=== PATIENT | female | born 1975 | race African-American/Black ===

== ENCOUNTER 2024-07-09 02:07 | Emergency (ER) | payer OTHER, SELFPAY ==
[2024-07-09] VITALS (30 sets, daily range): BP systolic 112–146; BP diastolic 68–110; PULSE 54–86; RESP 12–27; TEMP 36.3; O2SAT 97–100
--- NOTE | ~2024-07-09 | XR_ITS ---
EXAM/PROCEDURE: XR chest 2V - 07/09/2024 02:18 CDT HISTORY: 48 years old Female with sob TECHNIQUE: Two view(s) of the chest. COMPARISON: None available. FINDINGS: LUNGS/ PLEURA: No focal consolidation. No appreciable pneumothorax or large pleural effusion. HEART/ MEDIASTINUM: Heart appears normal in size. BONES: No acute osseous abnormality. OTHER: Visualized upper abdomen is unremarkable. IMPRESSION: No acute process. Reviewed, dictated and finalized at location A. IMPRESSION: No acute process.
--- NOTE | 2024-07-09 02:11 | ECG_ITS ---
Test Date: 2024-07-09 02:10:15 Measurements Intervals [place] Rate: 65 P: 60 FL: 165 QRS: 31 QRSD: 88 T: 30 QT: 404 QTc: 421 Interpretive Statements SINUS RHYTHM NONSPECIFIC T-WAVE ABNORMALITY- ANTERIOR LEADS BASELINE ARTIFACT- I, II, AVR, V1 BORDERLINE ECG No previous ECG available for comparison Electronically Signed On 07-09-2024 06:46:09 CDT by Jean-Claude Fontaine D.O.
[2024-07-09 02:18] LABS: Basophils Percent Auto 0.4 % (0.2-1.2); Eosinophils Absolute Auto 0.2 K/mm3 (0-0.3); Eosinophils Percent Auto 1.7 % (0-4.4); Hematocrit 35.1 % (37.0-47.0); Hemoglobin 11.1 g/dL (12.0-15.0); Immature Granulocyte Absolute 0.05 K/mm3 (0.00-0.031); Immature Granulocyte Percent A 0.5 % (0-0.5); Lymphocytes Absolute Auto 3.29 K/mm3 (0.9-3.2); Lymphocytes Percent Auto 29.9 % (18.3-44.2); Mean Corpuscular HGB Conc 31.6 g/dl (32-36); Mean Corpuscular Hemoglobin 24.9 pg (26-34); Mean Corpuscular Volume 78.9 fl (80-100); Mean Platelet Volume 9.4 fl (7.4-10.4); Monocytes Absolute Auto 0.7 K/mm3 (0.1-0.6); Monocytes Percent Auto 5.9 % (2.6-8.5); Neutrophils Absolute Auto 6.8 K/mm3 (1.3-6.7); Neutrophils Percent Auto 61.6 % (45.5-73.1); Platelet Count Result 475 k/mm3 (150-375); Red Blood Count 4.45 M/mm3 (4.2-5.4)
[2024-07-09 02:29] LABS: Alanine Aminotransferase 23 U/L (6-35); Albumin Level 3.9 g/dL (3.5-5.1); Alkaline Phosphatase 100 U/L (38-126); Anion Gap 11 mmol/L (4-12); Aspartate Amino Transferase 28 U/L (14-36); Bilirubin,Total 0.2 mg/dL (0.2-1.3); Blood Urea Nitrogen 8 mg/dL (7-17); Calcium 9.2 mg/dL (8.4-10.2); Carbon Dioxide 20 mmol/L (22-30); Chloride 106 mmol/L (98-107); Estimated CRCL calculation 109 ml/min; Estimated Glomerular Filt Rate > 60; Glucose 112 mg/dL (65-110); Potassium 3.5 mmol/L (3.4-5.0); Sodium 137 mmol/L (137-145)
--- NOTE | 2024-07-09 02:53 | ED_ITS ---
HPI - General Adult General Chief complaint: Shortness of Breath/Dyspnea Stated complaint: HTN, back pain, nausea, sob Time Seen by Provider: 07/09/24 02:30 History of Present Illness HPI narrative: Patient 48-year-old female who presents emergency department with chief complaint of shortness of breath dizziness low back pain and high blood pressure. The patient states that she has noticed that her low back pain in the little worse than normal reports no bowel or bladder incontinence denies saddle anesthesia denies footdrop patient reports that she checked her blood pressure and was elevated at home and reports that she took a dose of her mother's metoprolol the patient states that she is not on antihypertensives and does not normally check her blood pressure. Related Data Allergies Allergy/AdvReac Type Severity Reaction Status Date / Time No Known Allergies Allergy Mild Verified 07/03/09 17:37 Review of Systems 2 Review of Systems: A 10 system review of systems was completed on the patient and is negative except for what is stated in the HPI. Nursing and ancillary documentation was reviewed. Exam 2 Narrative: GENERAL: Well-appearing, well-nourished, and in no acute distress. HEAD: Normocephalic, atraumatic. EYES: PERRLA and EOMI. ENT: Nares clear, no rhinorrhea or epistaxis. Mucous membranes moist. NECK: Supple. CHEST: Clear to auscultation. No respiratory distress. HEART: Regular rate and rhythm. No murmur heard. Normal peripheral pulses. ABDOMEN: Soft, nontender, nondistended, normal active bowel sounds. EXTREMITIES: Normal range of motion. No edema. SKIN: Warm, dry, no rash. NEURO: No focal deficits. Alert and oriented x3. PSYCH: Normal mood and affect. Course Vital Signs Vital signs: Vital Signs Temperature 36.3 C L 07/09/24 02:05 Pulse Rate 79 07/09/24 02:05 Respiratory Rate 16 07/09/24 02:05 Blood Pressure 136/103 H 07/09/24 02:05 Pulse Oximetry 100 07/09/24 02:05 Oxygen Delivery Room Air 07/09/24 02:05 Temperature 36.3 C L 07/09/24 02:05 Pulse Rate 69 07/09/24 03:47 Respiratory Rate 17 07/09/24 03:47 Blood Pressure 128/79 07/09/24 03:47 Pulse Oximetry 100 07/09/24 03:47 Oxygen Delivery Room Air 07/09/24 02:10 Medical Decision Making MDM Narrative Medical decision making narrative: Differential diagnosis includes hypertensive crisis, hypertension, electrolyte abnormality ACS EKG showed no acute ischemic change Troponin was negative BNP was negative electrolytes showed no significant abnormality CBC showed white count 11 hemoglobin was 11.1 Chest x-ray showed no focal infiltrate Vital Signs Vital Signs: Vital Signs Temperature 36.3 C L 07/09/24 02:05 Pulse Rate 79 07/09/24 02:05 Respiratory Rate 16 07/09/24 02:05 Blood Pressure 136/103 H 07/09/24 02:05 Pulse Oximetry 100 07/09/24 02:05 Oxygen Delivery Room Air 07/09/24 02:05 Temperature 36.3 C L 07/09/24 02:05 Pulse Rate 69 07/09/24 03:47 Respiratory Rate 17 07/09/24 03:47 Blood Pressure 128/79 07/09/24 03:47 Pulse Oximetry 100 07/09/24 03:47 Oxygen Delivery Room Air 07/09/24 02:10 Lab Data 07/09/24 02:13 07/09/24 02:13 Labs: Lab Results 07/09/24 Range/Units 02:13 WBC 11.0 H (4.5-10.0) K/mm3 RBC 4.45 (4.2-5.4) M/mm3 Hgb 11.1 L (12.0-15.0) g/dL Hct 35.1 L (37.0-47.0) % MCV 78.9 L (80-100) fl MCH 24.9 L (26-34) pg MCHC 31.6 L (32-36) g/dl RDW 17.0 H (11.5-14.5) % Plt Count 475 H (150-375) k/mm3 MPV 9.4 (7.4-10.4) fl Immature Gran % (Auto) 0.5 (0-0.5) % Neut % (Auto) 61.6 (45.5-73.1) % Lymph % (Auto) 29.9 (18.3-44.2) % Cameron % (Auto) 5.9 (2.6-8.5) % Eos % (Auto) 1.7 (0-4.4) % Baso % (Auto) 0.4 (0.2-1.2) % Lymph # (Auto) 3.29 H (0.9-3.2) K/mm3 Cameron # (Auto) 0.7 H (0.1-0.6) K/mm3 Eos # (Auto) 0.2 (0-0.3) K/mm3 Baso # (Auto) 0.0 (0.0-0.1) K/mm3 Abs Immat Gran (auto) 0.05 H (0.00-0.031) K/mm3 Absolute Neuts (auto) 6.8 H (1.3-6.7) K/mm3 Absolute Nucleated RBC 0.000 (0.0-0.012) K/mm3 Nucleated RBC % 0.0 (0.0-0.2) % Sodium 137 (137-145) mmol/L Potassium 3.5 (3.4-5.0) mmol/L Chloride 106 (98-107) mmol/L Carbon Dioxide 20 L (22-30) mmol/L Anion Gap 11 (4-12) mmol/L BUN 8 (7-17) mg/dL Creatinine 0.64 L (0.7-1.0) mg/dL Estim Creat Clear Calc 109 ml/min Estimated GFR > 60 (59 - ) Glucose 112 H (65-110) mg/dL Calcium 9.2 (8.4-10.2) mg/dL Total Bilirubin 0.2 (0.2-1.3) mg/dL AST 28 (14-36) U/L ALT 23 (6-35) U/L Alkaline Phosphatase 100 (38-126) U/L Troponin I < 0.012 (0.000-0.034) ng/mL NT-Pro-B Natriuret Pep < 20 (19.9-100) pg/mL Total Protein 7.0 (6.3-8.2) g/dL Albumin 3.9 (3.5-5.1) g/dL Discharge Plan Discharge Clinical Impression: Hypertension Patient Disposition: Home Condition: Stable Instructions: Antibiotic Form, Low-Sodium Diet (ED), Hypertension (ED) Additional Instructions: Please keep a daily log of your blood pressure. He should check her blood pressure in the morning and in the evening keep track of this and bring this to your primary care provider Patient Language: Indonesian Follow-up/Referrals: VICENTE,Anitra SHORT [Primary Care Provider] - Time of Disposition: 05:29
--- OUTSIDE RECORDS SUMMARY | 2024-07-09 02:54 | XMS_ITS | Encounter Summary ---
Author Organization [facility] Address [address] [facility] [place] [address] Phone Care Team Providers Care Oracle Business Analyst Name Role Phone Elpidio Greer MD Primary Care Provider [phone] Lina Patel MD Primary Care Provider [phone] Reason for Visit * Reason Comments Medication Refill Encounter Details Date Type Department Care Team (Late st Contact Info) Description 08/09/2022 Refill [facility] - Internal [facility] - [place] [address] [place] [address] Elpidio Greer MD [address] [place] [address] Medication Refill Social History Tobacco Use Types Packs/Day Years Used Date Smoking Tobacco: Every Day Smokeless Tobacco: Never Alcohol Use Standard Drinks/Week Comments Yes 0 (1 standard drink = 0.6 oz pur e alcohol) PHQ-2 Answer Date Recorded Total Score - Questions 1-9 0 03/2020 Sexually Active Control Partners Comments Not Currently Comments No Sex and Gender Information Value Date Recorded Sex Assigned at Not on file Legal Sex Female 8:32 PM CDT Gender Identity Not on file Sexual Orientation Not on file documented as of this encounter Plan of Treatment Not on file documented as of this encounter Visit Diagnoses Not on filedocumented in this encounter Care Teams Oracle Business Analyst Relationship Specialty Start Date End Date Elpidio Greer MD [address] [place] [address] PCP - General Internal Medicine 02/11/21 09/09/23 Lina Patel MD [address] [place] [address] PCP - General Family Medicine 09/10/23 documented as of this encounter
--- OUTSIDE RECORDS SUMMARY | 2024-07-09 02:54 | XMS_ITS | Data Portability ---
Author Organization [place] - [facility], Bertha Smith Address [address] [place] [id number] Assessment No assessment recorded. Plan of Treatment Reminders Order Date Submit Date Provider Last Modified By Organization Details Last Modified Time Details Appointments None record ed. Lab None record ed. Referral None record ed. Procedures None record ed. Surgeries None record ed. Imaging None record ed. Medication Orders neomyc in-susi ymyxin -hydro cleve 3.5 mg-10, 000 unit/m L-1 % ear drops, susp 023 02/26/20 23 [facility] [id number] In [facility], [address] [place], [address], 17:19:40 Patient TargetsNo targets recorded. Patient Instructions Encounter Date Encounter Id Patient Instructions Last Modified By Organization Details Last Modified Time 02/25/2023 [id number] Avoid water in right ear for the next 7 days while under treatment,store at room temperature Encouraged to avoid Q-tip use in ears Follow up if ear symptoms persist, worsen, or have other questions or concerns. Patient verbalized understanding and agreed with the above Not available 02/25/2023 17:58:19 Reason for Referral None Reported. Medical Equipment None Reported. Allergies No known drug allergies Medications Name Sig Start Date Stop Date Status Note LastModified by Organization Details LastModified Time levothyroxi ne 137 mcg tablet TAKE 1 TABLET BY MOUTH EVERY DAY active Not Available Not Available No t Available meloxicam 7.5 mg tablet TAKE 1 TABLET BY MOUTH EVERY DAY FOR BACK PAIN active Not Available Not Available No t Available neomycin-po lymyxin-hyd rocort 3.5 mg-10,000 unit/mL-1 % ear drops,susp INSTILL 4 DROPS INTO AFFECTED EAR(S) BY OTIC ROUTE 3 TIMES PER DAY 2022 active Not Available Not Available Not Hernesto farr escitalopra m 10 mg tablet TAKE 1 TABLET BY MOUTH DAILY active Not Available Not Available No t Available bupropion HCl XL 150 mg 24 hr tablet, extended release TAKE 1 TABLET BY MOUTH EVERY DAY active Not Available Not Available No t Available Danyelle 0.35 mg tablet TAKE 1 TABLET BY MOUTH EVERY DAY 02/25 completed Not Available Not Available Not Available Vitals Date Recorded Body temperature Body height Respiratory rate Oxygen saturation Oxygen saturation in Arterial blood by Pulse oximetry Body mass index (BMI) Body weight Heart rate Systolic blood pressure Diastolic blood pressure Provider Name and Address Organization Details Last Updated DateTime 3 97.5 [degF] 165.1 cm 20 /min 98 % 98 % 34.9 kg/m2 09964.4 g 106 /min 137 mm[Hg] 92 mm[Hg] Maria Eugenia Kat [place] - [facility] 3 16:47:38 Social History Question Answer Notes LastModified by Pili Pop ion Details LastModified Time Tobacco Smoking Status Current Every Day Smoker Maria Eugenia [place], [place] [facility] 02/25/2023 16:49:00 In The 14 Days Before Symptom Onset, Have You Had Close Contact With A Laboratory-confirm ed COVID-19 While That Case Was Ill? No Information n ot available 02/25/2023 In The 14 Days Before Symptom Onset, Have You Had Close Contact With A Person Who Is Under Investigation For COVID-19 While That Person Was Ill? No Information not available 02/25/2023 Have You Been To An Area Known To Be High Risk For COVID-19? No Information not available 02/25/2023 Sex: Unknown Functional Status None recorded. Mental Status None recorded. Family History Nothing Reported. Medical History No medical history recorded. Gynecological HistoryNo gynecological history recorded. Obstetrics History GPAL:G 0 P 0 0 0 0 Immunizations Vaccine Type Date Status Note Provider Nam e and Address Organization Details Recorded Time Influenza, split virus, quadrivalent, PF 05/13/2019 completed Maria Eugenia saeed [place] [facility] 02/25/2023 16:48:03 Past Encounters Encounter ID Performer Location Encounter Start Date Encounter Closed Date Diagnosis/Indication Diagnosis SNOMED-CT Code Diagnosis ICD10 Code Diagnosis Note [id number] Lizbet Perla NP [facility] - [address] [place] [id number] 02/25/2023 16:41:44 02/25/2023 18:36:03 Otitis externa of right ear [id number] H60.91 Reviewed diagnosis of Otitis Externa with patientVer ified she had NKDA Health Concerns Section Related Observation LastModified by Organization Detai ls LastModified Time None Recorded Concern Status LastModified by Organization Details LastModified Time None Recorded Advance Directives Directive None Recorded Payers Encounter Date Sequence Insurance Name Policy Number Policy Hughes Covered Member ID Hughes Member ID Guarantor Name 02/25/2023 [employer] - NON - PLAN PARTICIPANT - (MOVED-BILLED) SELF PAY Hui Alejo UNKNOWN Hui Alejo Notes Date Note Type Note Provider Name and Address Organization Details Recorded Time 02/25/2023 text/html Hui a 47 yr old female presents in the clinic today with complaints of feeling like there is something in her right ear. Symptoms started after a dog jumped on the bed while she was lying down, therefore thought the dog may have had fleas or other that might have got in her ear, so started using a Q-tip in her ear to see if there was something in her ear, but unable to get anything out. States right ear feels irritated with a fullness sensation. Denies current or history of recent cold/congestive symptoms, no decrease hearing, ear drainage,dizzines s, vertigo, nausea, cough, fever, chills or headache. Lizbet Perla NP [address], [facility] [place], [address], [place] - [facility] 02/25/2023 18:02:22 OBGyn Episode No OBEpisode recorded.
--- OUTSIDE RECORDS SUMMARY | 2024-07-09 02:54 | XMS_ITS | Encounter Summary ---
Author Organization [facility] Address [address] [facility] [place] [address] Phone Care Team Providers Care Environmental Maintenance Worker Name Role Phone Elpidio Greer MD Primary Care Provider [phone] Lina Patel MD Primary Care Provider [phone] Reason for Visit * Reason Comments Medication Refill Encounter Details Date Type Department Care Team (Late st Contact Info) Description 05/13/2022 Refill [facility] - Internal Medicine - [place] [address] [place] [address] Elpidio Greer MD [address] [place] [address] Medication Refill Social History Tobacco [...] on file documented as of this encounter Miscellaneous Notes * Telephone Encounter - Annie Cooper RN - 05/13/2022 8:03 AM CST Medication failed the protocol, provider to review and approve the medication order if appropriate. Requested Prescriptions Pending Prescriptions Disp Refills phentermine 30 MG Capsule [Pharmacy Med Name: PHENTERMINE HCL 30MG CAPSULES] 30 Capsule 0 Sig: TAKE 1 CAPSULE BY MOUTH DAILY IN THE MORNING Not Delegated - Anorexiants Non-amphetamine Protocol Failed - 05/13/2022 6:17 AM Failed - This refill cannot be delegated Passed - Visit with relevant provider in past 12 months or upcoming 90 days Recent Visits Date Type Provider Dept 07/04/21 Office Visit Elpidio Greer MD [facility] [place] Showing recent visits within past 365 days and meeting all other requirements Future Appointments No visits were found meeting these conditions. Showing future appointments within next 90 days and meeting all other requirements LESS OPERATOR documented in this encounter Plan of Treatment Not on file documented as of this encounter Visit Diagnoses Diagnosis Obesity (BMI 30-39.9) Obesity, unspecified documented in this encounter Care Teams Environmental Maintenance Worker Relationship Specialty Start Date End Date Elpidio Greer MD [address] [facility] [place] [address] PCP - General Internal Medicine 02/11/21 09/09/23 Lina Patel MD [address] [place] [id number] PCP - General Family Medicine 09/10/23 documented as of this encounter
--- OUTSIDE RECORDS SUMMARY | 2024-07-09 02:54 | XMS_ITS | Clinical Summary ---
Author Organization [facility] Address [address] [place] [address] Phone Care Team Providers Care Shoe Reconditioner Name Role Phone Lina Patel MD Primary Care Provider [phone] Allergies No known active allergies Medications tiZANidine (ZANAFLEX) 2 MG Tablet TAKE 1 TABLET BY MOUTH TWICE DAILY NEEDED FOR MUSCLE SPASMS 30 Tablet 2 2 Active Additional Information Patient not taking.Reported on 03/07/2024 naproxen (NAPROSYN) 500 MG Tablet Take 1 Tablet by mouth 2 times daily as needed for Mild or more severe pain. 60 Tablet 1 2 Active Additional Information Patient not taking.Reported on 03/07/2024 phentermine 30 MG CapsuleIndicat ions:Obesity (BMI 30-39.9) Take 1 Capsule by mouth daily. In AM 30 Capsule 2 Active Additional Information Patient not taking.Reported on 03/07/2024 Norethindrone, Contraceptive, 0.35 MG Tablet 2 Active escitalopram (LEXAPRO) 10 MG Tablet TAKE 1 TABLET BY MOUTH DAILY 30 Tablet 3 3 Active Additional Information Patient not taking.Reported on 05/06/2024 levothyroxine (SYNTHROID) 137 MCG Tablet TAKE 1 TABLET BY MOUTH DAILY 30 Tablet 3 3 Active meloxicam (MOBIC) 7.5 MG Tablet TAKE 1 TABLET BY MOUTH EVERY DAY FOR BACK PAIN Active buPROPion (WELLBUTRIN) 300 MG TABLET SR 24 HR XL tablet Take 1 Tablet by mouth daily. Active MAGNESIUM PO Take by mouth daily. 06/17/19 25 Discontin ued(Patie nt Discharge ) Active Problems Problem Noted Date Diagnosed Date Postablative hypothyroidism 02/27/2021 Chronic right-sided low back pain without sciati ca 02/27/2021 Generalized anxiety disorder 02/27/2021 Encounters Date Type Department Care Team Description 06/04/2024 10:56 AM HOSPICE MUSIC THERAPIST - 06/04/2024 11:59 PM HOSPICE MUSIC THERAPIST Hospital Encounter [facility] Mammography [address] [place] [address] Lina Patel MD Discharge Disposition: Discharged to home or Selfcare 06/03/2024 Travel 05/06/2024 Telephone [facility] - Gastroenterology [facility] [address] [place] [address] Mary Ann Guo APRN, PACKER 05/06/2024 Travel 04/26/2024 Travel from Last 3 Months Family History Medical History Relation Name Comments Diabetes Father Diabetes Mother Hypertension Mother Thyroid Disease Mother Relation Name Status Comments Father Alive Mother Alive Social History Tobacco Use Types Packs/Day Years Used Date Smoking Tobacco: Every Day Cigarettes 0.5 31.3 Started: 1991 Smokeless Tobacco: Never Tobacco Cessation:Ready to Q uit: Not Asked; Counseling Given: Not Answered Alcohol Use Standard Drinks/Week Comments Yes 0 (1 standard drink = 0.6 oz pur e alcohol) JUST EVERY NOW AND THEN PHQ-2 Answer Date Recorded Total Score - Questions 1-9 0 03/2020 Sexually Active Control Partners Comments Not Currently Comments No Sex and Gender Information Value Date Recorded Sex Assigned at Not on file Legal Sex Female 8:32 PM CDT Gender Identity Not on file Sexual Orientation Not on file Last Filed Vital Signs Vital Sign Reading Time Taken Comments Blood Pressure 110/70 07/04/2021 10:56 AM CDT Pulse 72 07/04/2021 10:56 AM CDT Temperature 36.5 C (97.7 F) 07/04/2021 10:56 AM CDT Respiratory Rate - - Oxygen Saturation 96% 07/04/2021 10:56 AM CDT Inhaled Oxygen Concentration - - Weight 99.8 kg (220 lb) 05/06/2024 1:44 PM HOSPICE MUSIC THERAPIST Height 165.1 cm (5' 5 ) 05/06/2024 1:44 PM HOSPICE MUSIC THERAPIST Body Mass Index 36.61 05/06/2024 1:44 PM HOSPICE MUSIC THERAPIST Plan of Treatment Health Maintenance Due Date Last Done Comments Hepatitis C Virus (HCV) Screening 1977 TdaP Immunization 1977 Hepatitis B Immunization (1 of 3 - 19+ 3-dose series) 1996 Pap Smear 1998 Cervical Cancer Screening (CCS) 09/05/2007 HPV/Cotest 09/05/2007 Colonoscopy 2022 Colorectal Cancer Screening 2022 Influenza Immunization (#1) 2023 05/13/2019 SARS-COV-2 Immunization ( season) 2023 Mammogram 06/04/2025 06/04/2024 Respiratory Syncytial Virus (RSV) Immunization (Adult) (1 - 1-dose 75+ series) 2052 Discussion re Starting/Frequ ency of Mammograms Completed 06/04/2024 Meningococcal Immunization (ACWY) Aged Out No longer eligible based on patient's age to complete this topic Pneumococcal Immunization Combined Discontinued Rotavirus Immunization Aged Out No lo nger eligible based on patient's age to complete this topic Procedures Procedure Name Priority Date/Time Associated Diagnosis Comments [facility] SCREENING BILATERAL DIGITAL W CAD W NATALIA Routine 06/04/2024 11:41 AM HOSPICE MUSIC THERAPIST Encounter for screening mammogram for malignant neoplasm of breast from Last 3 Months Results * [facility] SCREENING BILATERAL DIGITAL W CAD W NATALIA (06/04/2024 11:41 AM HOSPICE MUSIC THERAPIST) Anatomical Region Laterality Modality breast Bilateral Mammography 06/04/2024 11:3 2 AM HOSPICE MUSIC THERAPIST Narrative 06/06/2024 4:38 PM CDT - [facility] SCREENING BILATERAL DIGITAL W CAD W NATALIA BILATERAL DIGITAL SCREENING MAMMOGRAM 3D/2D WITH CAD WITH MEDIOLATERAL OBLIQUE CRANIOCAUDAL: 06/04/2024 The study was acquired using digital technology and interpreted from soft copy. Current study was also evaluated with ICAD version 7.2. 2D digital mammographic views, as well as 3D digital tomosynthesis were performed in the CC and MLO projections. CLINICAL: Baseline screening. Patient has no complaints. No personal history of breast cancer. Maternal aunt and maternal cousin had breast cancer. COMPARISONS: No prior exams were available for comparison. BREAST TISSUE:The breasts are heterogeneously dense, which may obscure small masses. FINDINGS: No significant masses, calcifications, or other findings are seen in either breast. IMPRESSION: NEGATIVE There is no mammographic evidence of malignancy. A 1 year screening mammogram is recommended. A letter will be sent to the patient with these results. The patient will be entered into a reminder system with a target due date of 1 year for her next screening exam. Electronically signed by: Idalia harmon/penrad:06/06/2024 16:08:36 Master Printer(s): EMMIE Antonio)(Gerson), [facility] letter sent: Normal Exam Reading location: [place] Mammogram BI-RADS: Category 1: Negative Procedure Note Idalia Graham MD - 06/06/2024 - [facility] SCREENING BILATERAL DIGITAL W CAD W NATALIA BILATERAL DIGITAL SCREENING MAMMOGRAM 3D/2D WITH CAD WITH MEDIOLATERAL OBLIQUE CRANIOCAUDAL: 06/04/2024 The study was acquired using digital technology and interpreted from soft copy. Current study was also evaluated with ICAD version 7.2. 2D digital mammographic views, as well as 3D digital tomosynthesis were performed in the CC and MLO projections. CLINICAL: Baseline screening. Patient has no complaints. No personal history of breast cancer. Maternal aunt and maternal cousin had breast cancer. COMPARISONS: No prior exams were available for comparison. BREAST TISSUE:The breasts are heterogeneously dense, which may obscure small masses. FINDINGS: No significant masses, calcifications, or other findings are seen in either breast. IMPRESSION: NEGATIVE There is no mammographic evidence of malignancy. A 1 year screening mammogram is recommended. A letter will be sent to the patient with these results. The patient will be entered into a reminder system with a target due date of 1 year for her next screening exam. Electronically signed by: Idalia harmon/penrad:06/06/2024 16:08:36 Master Printer(s): EMMIE Antonio)(M), [facility] letter sent: Normal Exam Reading location: [place] Mammogram BI-RADS: Category 1: Negative Lina Patel MD IMG MAMMO ORDERABLES Final Re sult from Last 3 Months Insurance [facility] [place] [facility] Care Teams Shoe Reconditioner Relationship Specialty Start Date End Date Lina Patel MD [address] [place] [address] PCP - General Family Medicine 09/10/23
--- OUTSIDE RECORDS SUMMARY | 2024-07-09 02:54 | XMS_ITS | Encounter Summary ---
Author Organization [facility] Address [address] [facility] [place] [address] Phone Care Team Providers Care Imaging Science Professor Name Role Phone Elpidio Greer MD Primary Care Provider [phone] Lina Patel MD Primary Care Provider [phone] Reason for Visit * Reason Comments Medication Refill Encounter Details Date Type Department Care Team (Late st Contact Info) Description 07/03/2022 Refill [facility] - Internal Medicine - [place] [address] [place] [address] Elpidio Greer MD [address] [place] [address] Medication Refill Social History Tobacco Use Types Packs/Day Years Used Date Smoking Tobacco: Every Day Smokeless Tobacco: Never Alcohol Use Standard Drinks/Week Comments Yes 0 (1 standard drink = 0.6 oz pur e alcohol) PHQ-2 Answer Date Recorded Total Score - Questions 1-9 0 1203/2020 Sexually Active Control Partners Comments Not Currently Comments No Sex and Gender Information Value Date Recorded Sex Assigned at Not on file Legal Sex Female 8:32 PM CDT Gender Identity Not on file Sexual Orientation Not on file COVID-19 Exposure Response Date Recorded In the last 10 days, have yo u been in contact with someone who was confirmed or suspected to have Coronavirus/COVID-19? No / Unsure 06/23/2022 7:48 AM CDT documented as of this encounter Miscellaneous Notes * Telephone Encounter - Annie Cooper RN - 07/03/2022 10:27 AM CDT Medication failed the protocol, provider to review and approve the medication order if appropriate. Requested Prescriptions Pending Prescriptions Disp Refills naproxen (NAPROSYN) 500 MG Tablet [Pharmacy Med Name: NAPROXEN 500MG TABLETS] 60 Tablet 1 Sig: TAKE 1 TABLET BY MOUTH TWICE DAILY NEEDED FOR PAIN NSAIDs Protocol Failed - 07/03/2022 10:21 AM Failed - HGB greater than 10 or HCT greater than 30 in past 12 months No results found for: HEMOGLOBIN, HEMATOCRIT Passed - Normal serum creatinine in past 12 months CREATININE, BLOOD Date Value Ref Range Status 07/04/2021 0.62 0.60 - 1.10 mg/dL Final Passed - No positive test in the past 12 months or most recent test was negative Passed - Visit with relevant provider in past 12 months or upcoming 90 days Recent Visits Date Type Provider Dept 07/04/21 Office Visit Elpidio Greer MD [facility] [place] Showing recent visits within past 365 days and meeting all other requirements Future Appointments No visits were found meeting these conditions. Showing future appointments within next 90 days and meeting all other requirements Passed - No active on record Passed - No matching NSAID med order in past 45 days No matching medication orders between 05/19/2022 10:27 AM and 07/03/2022 10:27 AM Passed - AST less than 55 or ALT less than 90 in past 12 months SGOT (AST) Date Value Ref Range Status 07/04/2021 19 <=32 U/L Final SGPT (ALT) Date Value Ref Range Status 07/04/2021 18 <=41 U/L Final tiZANidine (ZANAFLEX) 2 MG Tablet [Pharmacy Med Name: TIZANIDINE 2MG TABLETS] 30 Tablet 2 Sig: TAKE 1 TABLET BY MOUTH TWICE DAILY NEEDED FOR MUSCLE SPASMS Not Delegated - Muscle Relaxants Protocol Failed - 07/03/2022 10:21 AM Failed - This refill cannot be delegated Passed - Visit with relevant provider in past 12 months or upcoming 90 days Recent Visits Date Type Provider Dept 07/04/21 Office Visit Elpidio Greer MD [facility] Showing recent visits within past 365 days and meeting all other requirements Future Appointments No visits were found meeting these conditions. Showing future appointments within next 90 days and meeting all other requirements Passed - ALT less than 90 and AST less than 55 on record in past 12 months SGOT (AST) Date Value Ref Range Status 07/04/2021 19 <=32 U/L Final SGPT (ALT) Date Value Ref Range Status 07/04/2021 18 <=41 U/L Final nitrofurantoin, macrocrystal-monohydrate, (MACROBID) 100 MG Capsule [Pharmacy Med Name: NITROFURANTOIN MONO/MAC 100MG CAPS] 14 Capsule 0 Sig: TAKE 1 CAPSULE BY MOUTH TWICE DAILY FOR 7 DAYS There is no refill protocol information for this order documented in this encounter Plan of Treatment Not on file documented as of this encounter Visit Diagnoses Not on filedocumented in this encounter Care Teams Imaging Science Professor Relationship Specialty Start Date End Date Elpidio Greer MD [address] [place] [address] PCP - General Internal Medicine 02/11/21 09/09/23 Lina Patel MD [address] [place] [address] [place] [id number] PCP - General Family Medicine 09/10/23 documented as of this encounter
--- OUTSIDE RECORDS SUMMARY | 2024-07-09 02:54 | XMS_ITS | Data Portability ---
Author Organization [facility] Address [address] [place] [address] Care Team Providers Care Under Water Assistant Name Role Phone LINA PATEL Primary Care Provider Assessment No assessment recorded. Plan of Treatment Reminders Order Date Submit Date Provider Last Modified By Organization Details Last Modified Time Details Appointments None recor ded. Lab TSH, ultra -sens itive , serum 2024 025 ADARSH [facility], [address] [place] [address], [address], 5 09:52:12 TSH, ultra -sens itive , serum 2024 025 ADARSH [facility], [address] [place] [address], [address], 5 08:38:08 lipid panel , serum 2023 024 ADARSH [facility], [address] [place] [address], [address], 4 10:37:33 CMP, serum or plasm a 2023 024 ADARSH [facility], [address] [place] [address], [address], 4 10:37:34 HbA1c (hemo globi n A1c), blood 2023 024 ADARSH [facility], [address] [place] [address], [address], 4 10:37:36 CBC w/ auto diff 2023 024 ADARSH [facility], [address] [place] [address] 2, [place], [address], 4 10:37:37 TSH, ultra -sens itive , serum 2023 024 eemeryma [facility], [address] [place] [address] 2, [place], [address], 4 11:42:45 Referral couns elidelon refer ral - depre ssion and anxie ty 2024 [facility], [address], [place], [address], 5 17:19:27 gastr ramesh charles ist refer ral 2023 024 [facility] [place], [address] [place] [address], [facility] [address], [place], [address], 4 10:08:52 Procedures None recor ded. Surgeries None recor ded. Imaging MAMMO , scree bakari, digit al, bilat eral 2023 024 [facility] Scheduling, [address] [place], [address], 4 09:17:47 Medication Orders Zepbo und 2.5 mg/0. 5 mL subcu taneo us pen injec tor 2024 ADARSH [id number], [address], [place], [place], [id number], 5 09:29:56 bupro pion HCl XL 300 mg 24 hr table t, exten ded relea se 2024 025 ADARSH [facility] #[id number], [address] [place], [place], [id number], 5 16:53:56 bupro pion HCl XL 150 mg 24 hr table t, exten ded relea se 2024 025 ADARSH [facility] #[id number], [address], [place], [id number], 5 11:56:08 melox icam 7.5 mg table t 2023 024 ADARSH [id number] [facility], [address] [place], [address], 5 09:06:28 levot hyrox ine 137 mcg table t 2023 024 [email or web address] [facility] [id number] [facility], [address] [facility], [place], [address], 5 14:12:28 bupro pion HCl XL 150 mg 24 hr table t, exten ded relea se 2023 024 [email or web address] [facility] [id number] [facility], [address] [place], [address], 5 11:55:48 Patient TargetsNo targets recorded. Patient Instructions Encounter Date Encounter Id Patient Instructions Last Modified By Organization Details Last Modified Time 09/08/2023 [id number] A healthy lifestyle: care instructions [email or web address] Not available 09/08/2023 11:57:42 Reason for Referral [employer]ating [employer] Tender Referral for Screening for malignant neoplasm of colon screening colonoscopy Referring Physician: Lina Patel, Family Medicine, Encounter Date: 09/08/2023 Counseling Referral for Mixe d anxiety and depressive disorder depression and anxiety Referring Physician: Lina Patel Family Medicine, Encounter Date: 04/12/2024 Results Created Date Observation Date Name Description Value Unit Range Abnormal Flag Note LastModifiedBy Organization Detail LastModifiedTime 09/08/19 24 09/09/2023 LIPID PANEL cholesterol, total 225 mg/dL 100-19 9 above high normal Not Available [facility] ([facility]) [address], [place], [address], 09/09/2023 10:37:33 09/08/19 24 09/09/2023 LIPID PANEL triglyceride s 186 mg/dL 0-149 above high normal Not Available [facility] ([facility]) [address] [place], [address], 09/09/2023 10:37:33 09/08/19 24 09/09/2023 LIPID PANEL HDL cholesterol 81 mg/dL >39 Not Available [facility]) [address] [place], [address], 09/09/2023 10:37:33 09/08/19 24 09/09/2023 LIPID PANEL VLDL cholesterol [place] 32 mg/dL 5-40 Not Available [facility] ([facility]) [address] [place], [address], 09/09/2023 10:37:33 09/08/19 24 09/09/2023 LIPID PANEL LDL chol calc ([facility]) 112 mg/dL 0-99 above high normal Not Available [facility] ([facility]) [address] [place], [address], 09/09/2023 10:37:33 09/08/19 24 09/09/2023 COMP. METAB OLIC PANEL (14) glucose 92 mg/dL 70-99 Not Available [facility] ([facility]) [address] [place], [address], 09/09/2023 10:37:34 09/08/19 24 09/09/2023 COMP. METAB OLIC PANEL (14) BUN 10 mg/dL 6-24 Not Available [facility] ([facility]) [address] [place], [address], 09/09/2023 10:37:34 09/08/19 24 09/09/2023 COMP. METAB OLIC PANEL (14) creatinine 0.89 mg/dL 0.57-1 .00 Not Available [facility] ([facility]) [address] [place], [address], 09/09/2023 10:37:34 09/08/19 24 09/09/2023 COMP. METAB OLIC PANEL (14) eGFR 81 mL/mi n/1.7 3 >59 Not Available [facility] ([facility]) [address] [place], [address], 09/09/2023 10:37:34 09/08/19 24 09/09/2023 COMP. METAB OLIC PANEL (14) BUN/creatini ne ratio 11 9-23 Not Available [facility] ([facility]) [address], [place], [address], 09/09/2023 10:37:34 09/08/19 24 09/09/2023 COMP. METAB OLIC PANEL (14) sodium 139 mmol/ L 134-14 4 Not Available [facility] ([facility]) [address] [place], [address], 09/09/2023 10:37:34 09/08/19 24 09/09/2023 COMP. METAB OLIC PANEL (14) potassium 4.0 mmol/ L 3.5-5. 2 Not Available [facility] ([facility]) [address] [place], [address], 09/09/2023 10:37:34 09/08/19 24 09/09/2023 COMP. METAB OLIC PANEL (14) chloride 102 mmol/ L 96-106 Not Available [facility] ([facility]) [address] [place], [address], 09/09/2023 10:37:34 09/08/19 24 09/09/2023 COMP. METAB OLIC PANEL (14) carbon dioxide, total 24 mmol/ L 20- Not Available [facility] ([facility]) [address], [place], [address], 09/09/2023 10:37:34 09/08/19 24 09/09/2023 COMP. METAB OLIC PANEL (14) calcium 9.5 mg/dL 8.7-10 .2 Not Available [facility] ([facility]) [address], [place], [address], 09/09/2023 10:37:34 09/08/19 24 09/09/2023 COMP. METAB OLIC PANEL (14) protein, total 6.8 g/dL 6.0-8. 5 Not Available [facility] ([facility]) [address] [place], [address], 09/09/2023 10:37:34 09/08/19 24 09/09/2023 COMP. METAB OLIC PANEL (14) albumin 4.2 g/dL 3.9-4. 9 Not Available [facility] ([facility]) [address], [place], [address], 09/09/2023 10:37:34 09/08/19 24 09/09/2023 COMP. METAB OLIC PANEL (14) globulin, total 2.6 g/dL 1.5-4. 5 Not Available [facility] ([facility]) [address], [place], [address], 09/09/2023 10:37:34 09/08/19 24 09/09/2023 COMP. METAB OLIC PANEL (14) A/G ratio 1.6 Not Available [facility] ([facility]) [address], [place], [address], 09/09/2023 10:37:34 09/08/19 24 09/09/2023 COMP. METAB OLIC PANEL (14) bilirubin, total 0.3 mg/dL 0.0-1. 2 Not Available [facility] ([facility]) [address] [place], [address], 09/09/2023 10:37:34 09/08/19 24 09/09/2023 COMP. METAB OLIC PANEL (14) alkaline phosphatase 94 IU/L 44-121 Not Available [facility] ([facility]) [address] [place], [address], 09/09/2023 10:37:34 09/08/19 24 09/09/2023 COMP. METAB OLIC PANEL (14) AST (SGOT) 24 IU/L 0-40 Not Available [facility] ([facility]) [address], [place], [address], 09/09/2023 10:37:34 09/08/19 24 09/09/2023 COMP. METAB OLIC PANEL (14) ALT (SGPT) 14 IU/L 0-32 Not Available [facility] ([facility]) [address] [place], [address], 09/09/2023 10:37:34 09/08/19 24 09/08/2023 HEMOG LOBIN A1C hemoglobin A1C 5.9 % 4.8-5. 6 above high normal Predi abete s: 5.7 - 6.4 Diabe re: >6.4 Glyce raad contr ol for adult s with diabe re: <7.0 Not Available [facility] ([facility]) [address] [place], [address], 09/09/2023 10:37:35 09/08/19 24 09/08/2023 CBC WITH DIFFE RENTI AL/PL ATELE T WBC 10.5 x10e3 /uL 3.4-10 .8 Not Available [facility] ([facility]) [address] [place], [address], 09/09/2023 10:37:37 09/08/19 24 09/08/2023 CBC WITH DIFFE RENTI AL/PL ATELE T RBC 4.23 x10e6 /uL 3.77-5 .28 Not Available [facility] ([facility]) [address], [place], [address], 09/09/2023 10:37:37 09/08/19 24 09/08/2023 CBC WITH DIFFE RENTI AL/PL ATELE T hemoglobin 11.5 g/dL 11.1-1 5.9 Not Available [facility] ([facility]) [address] [place], [address], 09/09/2023 10:37:37 09/08/19 24 09/08/2023 CBC WITH DIFFE RENTI AL/PL ATELE T hematocrit 36.2 % 34.0-4 6.6 Not Available [facility] ([facility]) [address] [place], [address], 09/09/2023 10:37:37 09/08/19 24 09/08/2023 CBC WITH DIFFE RENTI AL/PL ATELE T MCV 86 fL 79-97 Not Available [facility] ([facility]) [address] [place], [address], 09/09/2023 10:37:37 09/08/19 24 09/08/2023 CBC WITH DIFFE RENTI AL/PL ATELE T MCH 27.2 pg 26.6-3 3.0 Not Available [facility] ([facility]) [address] [place], [address], 09/09/2023 10:37:37 09/08/19 24 09/08/2023 CBC WITH DIFFE RENTI AL/PL ATELE T MCHC 31.8 g/dL 31.5-3 5.7 Not Available [facility] ([facility]) [address] [place], [address], 09/09/2023 10:37:37 09/08/19 24 09/08/2023 CBC WITH DIFFE RENTI AL/PL ATELE T RDW 14.7 % 11.7-1 5.4 Not Available [facility] ([facility]) [address], [place], [address], 09/09/2023 10:37:37 09/08/19 24 09/08/2023 CBC WITH DIFFE RENTI AL/PL ATELE T platelets 394 x10e3 /uL 150-45 0 Not Available [facility] ([facility]) [address], [place], [address], 09/09/2023 10:37:37 09/08/19 24 09/08/2023 CBC WITH DIFFE RENTI AL/PL ATELE T neutrophils 64 % notest ab. Not Available [facility] ([facility]) [address], [place], [address], 09/09/2023 10:37:37 09/08/19 24 09/08/2023 CBC WITH DIFFE RENTI AL/PL ATELE T lymphs 27 % notest ab. Not Available [facility] ([facility]) [address], [place], [address], 09/09/2023 10:37:37 09/08/19 24 09/08/2023 CBC WITH DIFFE RENTI AL/PL ATELE T monocytes 5 % notest ab. Not Available [facility] ([facility]) [address], [place], [address], 09/09/2023 10:37:37 09/08/19 24 09/08/2023 CBC WITH DIFFE RENTI AL/PL ATELE T eos 2 % notest ab. Not Available [facility] ([facility]) [address], [place], [address], 09/09/2023 10:37:37 09/08/19 24 09/08/2023 CBC WITH DIFFE RENTI AL/PL ATELE T basos 1 % notest ab. Not Available [facility] ([facility]) [address], [place], [address], 09/09/2023 10:37:37 09/08/19 24 09/08/2023 CBC WITH DIFFE RENTI AL/PL ATELE T neutrophils (absolute) 6.8 x10e3 /uL 1.4-7. 0 Not Available [facility] ([facility]) [address], [place], [address], 09/09/2023 10:37:37 09/08/19 24 09/08/2023 CBC WITH DIFFE RENTI AL/PL ATELE T lymphs (absolute) 2.8 x10e3 /uL 0.7-3. 1 Not Available [facility] ([facility]) [address], [place], [address], 09/09/2023 10:37:37 09/08/19 24 09/08/2023 CBC WITH DIFFE RENTI AL/PL ATELE T monocytes(ab solute) 0.5 x10e3 /uL 0.1-0. 9 Not Available [facility] ([facility]) [address], [place], [address], 09/09/2023 10:37:37 09/08/19 24 09/08/2023 CBC WITH DIFFE RENTI AL/PL ATELE T eos (absolute) 0.2 x10e3 /uL 0.0-0. 4 Not Available [facility] ([facility]) [address] [place], [address], 09/09/2023 10:37:37 09/08/19 24 09/08/2023 CBC WITH DIFFE RENTI AL/PL ATELE T baso (absolute) 0.1 x10e3 /uL 0.0-0. 2 Not Available [facility] ([facility]) [address] [place], [address], 09/09/2023 10:37:37 09/08/19 24 09/08/2023 CBC WITH DIFFE RENTI AL/PL ATELE T immature granulocytes 1 % notest ab. Not Available [facility] ([facility]) [address], [place], [address], 09/09/2023 10:37:37 09/08/19 24 09/08/2023 CBC WITH DIFFE RENTI AL/PL ATELE T immature grans (abs) 0.1 x10e3 /uL 0.0-0. 1 Not Available [facility] ([facility]) [address], [place], [address], 09/09/2023 10:37:37 04/26/19 25 04/27/2024 TSH TSH 6.990 uIU/m L 0.450- 4.500 above high normal Not Available [facility] ([facility]) [address], [place], [address], 04/27/2024 08:38:08 06/04/19 25 06/04/2024 MICRO SCOPI C EXAMI NATIO N WBC 0-5 /hpf 0-5 Not Available [facility] ([facility]) [address], [place], [address], 06/04/2024 06:37:50 06/04/19 25 06/04/2024 MICRO SCOPI C EXAMI NATIO N RBC None seen /hpf 0-2 Not Available [facility] ([facility]) [address], [place], [address], 06/04/2024 06:37:50 06/04/19 25 06/04/2024 MICRO SCOPI C EXAMI NATIO N epithelial cells (non renal) 0-10 /hpf 0-10 Not Available [facility] ([facility]) [address], [place], [address], 06/04/2024 06:37:50 06/04/19 25 06/04/2024 MICRO SCOPI C EXAMI NATIO N casts None seen /lpf nonese en Not Available [facility] ([facility]) [address], [place], [address], 06/04/2024 06:37:50 06/04/19 25 06/04/2024 MICRO SCOPI C EXAMI NATIO N bacteria Few nonese en/few Not Available [facility] ([facility]) [address], [place], [address], 06/04/2024 06:37:50 06/04/19 25 06/04/2024 UA/M W/RFL X CULTU RE, ROUTI NE specific gravity 1.029 1.005- 1.030 Not Available [facility] ([facility]) [address], [place], [address], 06/04/2024 06:37:51 06/04/19 25 06/04/2024 UA/M W/RFL X CULTU RE, ROUTI NE pH 6.0 5.0-7. 5 Not Available [facility] ([facility]) [address], [place], [address], 06/04/2024 06:37:51 06/04/19 25 06/04/2024 UA/M W/RFL X CULTU RE, ROUTI NE urine-color YELLOW yellow Not Available [facility] ([facility]) [address], [place], [address], 06/04/2024 06:37:51 06/04/19 25 06/04/2024 UA/M W/RFL X CULTU RE, ROUTI NE appearance CLEAR clear Not Available [facility] ([facility]) [address], [place], [address], 06/04/2024 06:37:51 06/04/19 25 06/04/2024 UA/M W/RFL X CULTU RE, ROUTI NE WBC esterase NEGATI VE negati ve Not Available [facility] ([facility]) [address], [place], [address], 06/04/2024 06:37:51 06/04/19 25 06/04/2024 UA/M W/RFL X CULTU RE, ROUTI NE protein NEGATI VE negati ve/tra ce Not Available [facility] ([facility]) [address] [place], [address], 06/04/2024 06:37:51 06/04/19 25 06/04/2024 UA/M W/RFL X CULTU RE, ROUTI NE glucose NEGATI VE negati ve Not Available [facility] ([facility]) [address] [place], [address], 06/04/2024 06:37:51 06/04/19 25 06/04/2024 UA/M W/RFL X CULTU RE, ROUTI NE ketones NEGATI VE negati ve Not Available [facility] ([facility]) [address], [place], [address], 06/04/2024 06:37:51 06/04/19 25 06/04/2024 UA/M W/RFL X CULTU RE, ROUTI NE occult blood NEGATI VE negati ve Not Available [facility] ([facility]) [address] [place], [address], 06/04/2024 06:37:51 06/04/19 25 06/04/2024 UA/M W/RFL X CULTU RE, ROUTI NE bilirubin NEGATI VE negati ve Not Available [facility] ([facility]) [address] [place], [address], 06/04/2024 06:37:51 06/04/19 25 06/04/2024 UA/M W/RFL X CULTU RE, ROUTI NE urobilinogen ,semi-qn 0.2 mg/dL 0.2-1. 0 Not Available [facility] ([facility]) [address] [facility] [place], [address], 06/04/2024 06:37:51 06/04/19 25 06/04/2024 UA/M W/RFL X CULTU RE, ROUTI NE nitrite, urine NEGATI VE negati ve Not Available [facility] ([facility]) [address], [place], [address], 06/04/2024 06:37:51 06/04/19 25 06/04/2024 UA/M W/RFL X CULTU RE, ROUTI NE microscopic examination COMMEN T Micro scopi c follo ws if indic ated. Not Available [facility] ([facility]) [address], [place], [address], 06/04/2024 06:37:51 06/04/19 25 06/04/2024 UA/M W/RFL X CULTU RE, ROUTI NE microscopic examination SEE BELOW: Micro scopi c was indic ated and was perfo rmed. Not Available [facility] ([facility]) [address], [place], [address], 06/04/2024 06:37:51 06/04/19 25 06/04/2024 UA/M W/RFL X CULTU RE, ROUTI NE urinalysis reflex COMMEN T This speci men will not refle x to a Urine Cultu re. Not Available [facility] ([facility]) [address], [place], [address], 06/04/2024 06:37:51 06/04/19 25 06/04/2024 TSH TSH 11.000 uIU/m L 0.450- 4.500 above high normal Not Available [facility] ([facility]) [address] [place], [address], 06/04/2024 08:38:15 Result Notes None recorded. Problems Name Problem SNOMED Code Status Onset Date Resolution Date Notes Provider Name and Address Organization Details Recorded Time Cyst of right ovary 7181034586120 9108 Active 2021 LINA PATEL MD Attn: Accountnoemy sharpe,[address] [facility], [place], [address], [place] [facility] 2 14:42:01 Intramural leiomyoma of uterus 47034442 Active 2021 LINA PATEL MD Attn: Accountnoemy g,[address] [facility], [place], [address], [place] [facility] 2 14:42:19 Hypothyroid ism 32921264 Active 2021 LINA PATEL MD Attn: Accountnoemy g,[address] [facility], [place], [address], [place] [facility] 2 14:42:47 Menorrhagia 438477153 Active 2021 LINA PATEL MD Attn: Accountnoemy sharpe,[address] [facility], [place], [address], [place] [facility] 2 14:42:56 Mixed anxiety and depressive disorder 507344533 Active 2023 LINA PATEL MD Attn: Accountnoemy g,[address] [facility], [place], [address], [place] [facility] 4 12:19:17 Obesity 150256463 Active 2023 LINA PATEL MD Attn: Accountnoemy g,[address] [facility], [place], [address], [place] [facility] 4 12:19:19 Chronic low back pain 653999351 Active 2023 LINA PATEL MD Attn: Accountin g,[address] [facility], [place], [address], [place] [facility] 4 12:19:15 Dyslipidemi a 169124282 Active 2023 LINA PATEL MD Attn: Accountnoemy g,[address] [facility], [place], [address], [place] [facility] 4 14:04:03 Prediabetes 178017000 Active 2023 LINA PATEL MD Attn: Accountin g,[address] [facility], [place], [address], [facility] 14:04:09 Problem Notes None recorded. Procedures Surgical History Date Name Laterality Status Provider Name and Address Organization Details Recorded Time 12/24/2021 Date of Last Pap Smear completed LINA PATEL MD Attn: Accounting, [facility], [place], [address], [facility] 09/08/2023 11:35:26 Imaging Results None recorded. Procedure Notes None recorded. Medical Equipment None Reported. Allergies No known drug allergies Medications Name Sig Start Date Stop Date Status Note LastModified by Organization Details LastModified Time levothyro xine 137 mcg tablet Take 1 tablet every day by oral route. 04/27 completed increase d to 150 mcg daily Not Available Not Available Not Available tizanidin e 2 mg tablet TAKE 1 TABLET BY MOUTH TWICE DAILY NEEDED FOR MUSCLE SPASMS 09/07 completed Not Available Not Available Not Available phentermi ne 30 mg capsule TAKE 1 CAPSULE BY MOUTH DAILY IN THE MORNING 12/26 completed Not Available Not Available Not Available meloxicam 7.5 mg tablet TAKE 1 TABLET BY MOUTH EVERY DAY FOR BACK PAIN 04/12 completed Not Available Not Available Not Available levothyro xine 150 mcg tablet TAKE 1 TABLET BY MOUTH DAILY BEFORE MEAL active Not Available Not Available No t Available naproxen 500 mg tablet TAKE 1 TABLET BY MOUTH TWICE DAILY NEEDED FOR PAIN 09/07 completed Not Available Not Available Not Available escitalop rui 10 mg tablet TAKE 1 TABLET BY MOUTH DAILY 09/07 completed Not Available Not Available Not Available bupropion HCl XL 300 mg 24 hr tablet, extended release TAKE 1 TABLET BY MOUTH EVERY DAY active Not Available Not Available No t Available bupropion HCl XL 150 mg 24 hr tablet, extended release Take 1 tablet every day by oral route. 05/11 completed Not Available Not Available Not Available nitrofura ntoin monohydra te/macroc rystals 100 mg capsule Take 1 capsule every 12 hours by oral route for 5 days. 06/29 completed Not Available Not Available Not Available Danyelle 0.35 mg tablet TAKE 1 TABLET BY MOUTH EVERY DAY 09/07 completed Not Available Not Available Not Available Zepbound 2.5 mg/0.5 mL subcutane ous pen injector Inject 2.5 mg every week by subcutan eous route. 06/29 completed Not Available Not Available Not Available Vitals Date Recorded Body weight Body mass index (BMI) Body height Body temperature Heart rate Respiratory rate Systolic blood pressure Diastolic blood pressure Provider Name and Address Organization Details Last Updated DateTime 4 47710.4 g 36 kg/m2 165.1 cm 97.7 [degF] 71 /min 16 /min 132 mm[Hg] 89 mm[Hg] Mary Ann Li MA [facility] 4 11:27:48 Date Recorded Body height Body mass index (BMI) Body weight Oxygen saturation Oxygen saturation in Arterial blood by Pulse oximetry Heart rate Body temperature Systolic blood pressure Diastolic blood pressure Provider Name and Address Organization Details Last Updated DateTime 5 165.1 cm 37.9 kg/m2 128926. 06 g 98 % 98 % 78 /min 97.8 [degF] 129 mm[Hg] 84 mm[Hg] Stella Meneses MA [facility] 5 09:03:26 Date Recorded Body height Body mass index (BMI) Body weight Heart rate Oxygen saturation Oxygen saturation in Arterial blood by Pulse oximetry Body temperature Respiratory rate Systolic blood pressure Diastolic blood pressure Provider Name and Address Organization Details Last Updated DateTime 5 165.1 cm 37.3 kg/m2 578166. 79 g 76 /min 100 % 100 % 98 [degF] 16 /min 133 mm[Hg] 90 mm[Hg] Mary Ann Li MA [facility] 5 16:26:14 Date Recorded Body height Provider Name an d Address Organization Details Last Updated DateTime 05/11/2024 165.1 cm Stella Meneses MA [facility] 05/11 11:55:22 Date Recorded Body height Provider Name an d Address Organization Details Last Updated DateTime 06/29/2024 165.1 cm Mary Ann Li MA [facility] 06/29 09:29:22 Social History Question Answer Notes LastModified by Organizat ion Details LastModified Time Tobacco Smoking Status Current Every Day Smoker Stella Meneses MA [facility], [place] [facility] 12/26/2021 11:11:10 What Is Your Level Of Alcohol Consumption? None Information not available 12/26/2021 Are You Blind Or Do You Have Difficulty Seeing? No Information not available 12/26/2021 What Is Your Level Of Caffeine Consumption? Occasional Information not available 12/26/2021 In The 14 Days Before Symptom Onset, Have You Had Close Contact With A Laboratory-confir med COVID-19 While That Case Was Ill? No Information not available 12/26/2021 In The 14 Days Before Symptom Onset, Have You Had Close Contact With A Person Who Is Under Investigation For COVID-19 While That Person Was Ill? No Information not available 12/26/2021 Have You Been To An Area Known To Be High Risk For COVID-19? No Information not available 12/26/2021 Are You Currently Employed? Yes Information not available 12/26/2021 Are You Deaf Or Do You Have Serious Difficulty Hearing? No Information not available 12/26/2021 What Type Of Diet Are You Following? 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 No Information not available 04/12/2024 What Was The Date Of Your Most Recent Tobacco Screening? 05/11/2024 Information not available 05/11/2024 What Is Your Current Pack Years? 20-29packyears Information not available 12/26/2021 What Is Your Relationship Status? Single Information not available 12/26/2021 Do You Use Your Seat Belt Or Car Seat Routinely? Yes Information not available 12/26/2021 Are You Sexually Active? No Information not available 12/26/2021 Do You Have Smoke And Carbon Monoxide Detectors In Your Home? Yes Information not available 12/26/2021 At What Age Did You Start Smoking Tobacco? 18 Information not available 12/26/2021 Are You Passively Exposed To Smoke? Yes Information no t available 12/26/2021 How Much Tobacco Do You Smoke? 0.25 PPD Information not available 12/26/2021 Do You Feel Stressed (tense, Restless, Nervous, Or Anxious, Or Unable To Sleep At Night)? [id number] Information not available 04/12/2024 Do You Use Any Illicit Or Recreational Drugs? No Information not available 12/26/2021 Has Tobacco Cessation Counseling Been Provided? Yes Information not available 12/26/2021 On What Date Was Tobacco Cessation Counseling Provided? 05/11/2024 Information not available 05/11/2024 How Many Years Have You Smoked Tobacco? 30 Information not available 04/12/2024 Do You Or Have You Ever Used Any Other Forms Of Tobacco Or Nicotine? No Information not available 12/26/2021 Sex: Female Functional Status Question Answer Note LastModified by Organization D etails LastModified Time Are you able to care for yourself? Yes Information n ot available 12/26/2021 What is your exercise level? None Information not available 04/12/2024 Mental Status None recorded. Family History Relationship Description Onset Age of this Age Resolved Age Notes LastModified by Organization Details LastModified Time Mother Hypertensive disorder crexfordma Not available 12/26 11:09:33 Mother Diabetes mellitus crexfordma Not available 12/26 11:09:40 Mother Hypercholest erolemia crexfordma Not available 12/26 11:09:46 Mother Cerebrovascu lar accident crexfordma Not available 11:09:54 Maternal Grandfather Malignant tumor of colon crexfordma Not available 12/26 11:10:19 Medical History Condition Response Coronary Artery Disease N Other N High Blood Pressure N Atrial Fibrillation N Thyroid Problems Y Kidney or Bladder Problems N Blood Clots N COPD N Depression Y GI Problems N Have you had a mammogram in the last yea r? N Skin Problems N Eating Disorder N Anemia N Heart Attack (CT) N Anxiety Disorder Y Diabetes N Muscle, Joint, or Bone Problems N Seizures/Epilepsy N Acid Reflux (GERD) N Cancer N Stroke N Asthma N Allergies N ADHD N Substance Abuse N High Cholesterol N Hepatitis N Liver Disease N Schizophrenia N Headaches N Osteoporosis N Heart Failure N Gynecological History Statement/Question Response Date of Last Mammogram Flow Heavy Date of LMP 05/28/2024 Menses Monthly Y Date of Last Pap Smear 12/24/2021 Duration of Flow (days) 4 Age at Menarche 18 Current Control Method None Age at First Child 18 LMP Approximate Obstetrics History GPAL:G 3 P 1 0 2 1 Type Value Multiple Births 0 Full Term 1 Induced 2 Spontaneous 0 Premature 0 Living 1 Ectopics 0 Total 3 Immunizations Vaccine Type Date Status Note Provider El fairchild and Address Organization Details Recorded Time Influenza, split virus, quadrivalent, PF 05/13/2019 completed LINA PATEL MD Attn: [address] [place], [address], [facility] 09/08/2023 11:33:33 Past Encounters Encounter ID Performer Location Encounter Start Date Encounter Closed Date Diagnosis/Indication Diagnosis SNOMED-CT Code Diagnosis ICD10 Code Diagnosis Note [id number] LINA PATEL MD [facility] (DEBT COUNSELOR) [address] [place] [address] 12/26/2021 10:57:27 12/27/2021 09:28:46 Screening for malignant neoplasm of cervix 944071695 Z12.4 - Due for co-testing ; collected today Venereal d isease screening 543720726 Z11.3 - Testing for gonorrhea, chlamydia, trichomona s only per patient request- Declined serum testing for HIV, syphilis, hepatitis B, and hepatitis C Menorrhagia 362333284 N9 2.0 - History of heavy periods, previously managed by Mirena IUD- Discussed use of progestin- only pills for management of heavy bleeding; advised patient importance of taking pill daily on the hour if using for contracept sindhu purposes- Reviewed 2019 pelvic US, which showed complex cyst of right ovary and an intramural fibroid; left message on patient's phone to discuss next steps for evaluation , including repeating a pelvic US to check for resolution of previous complex cyst Chronic low back pain 27 3530985 M54.50 - Right SI joint tenderness to palpation on exam without sciatic symptoms on straight leg raise; 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, especially in setting of heavy lifting for many years at work- Less likely ankylosing spondyliti s vs gout vs other injury- Continue home exercises -- provided additional exercises with handout today- Recommende d liberal use of ice and heat as needed, as well as topical NSAIDs and/or oral NSAIDs to be taken with food- Continue tizanidine use as needed- Return to clinic in 1 month; if pain persists, consider referral back to physical therapy [id number] MD Caitlin ROMEROhalto (DEBT COUNSELOR) [address] [place] [address] 09/08/2023 11:16:21 09/09/2023 19:45:43 Screening for malignant neoplasm of breast 140132801 Z12.31 - Due for screening mammogram; ordered today Screening for malignant neoplasm of colon 409630435 Z12.11 - Due for colorectal cancer screening; recommende d colonoscop y Adult heal th examination 876128418 Z00.00 - Reviewed risks for cardiovasc ular disease, infection, and cancer; ordered screening tests as appropriat e- Recommende d annual flu vaccine and updated 2022 COVID vaccine; patient declined Hypothyroidism 34780791 E03.9 - Off of home levothyrox ine 137 mcg daily for many months. Restarted medication today.- f/u TSH in 4-6 weeks; adjust levothyrox ine dose as indicated by results Menorrhagia 279873663 N9 2.0 - History of heavy periods, previously managed by Mirena IUD- 12/26/21: Discussed use of progestin- only pills for management of heavy bleeding; advised patient importance of taking pill daily on the hour if using for contracept sindhu purposes. Reviewed 2019 pelvic US, which showed complex cyst of right ovary and an intramural fibroid; left message on patient's phone to discuss next steps for evaluation , including repeating a pelvic US to check for resolution of previous complex cyst.- 06/23/22: Pelvic US unremarkab le.- 09/08/23: Continuing to have heavy periods. States she does not remember taking POPs. f/u CBC to evaluate for anemia. Obesity 603229561 E66.9 Z68.36 - Discussed healthy behaviors, including eating a balanced diet and incorporat ing regular physical activity into day. Offered referral to dietitian, which patient declined. States weight gain is related to her depression /anxiety.- f/u lipid panel, A1c, CMP -- at increased risk of high cholestero l, diabetes, and fatty liver disease for BMI >30 Mixed anxi ety and depressive disorder 609293012 F41.8 - History of anxiety and depression - Previously on escitalopr am 10 mg daily but would prefer to get back to bupropion. Prescribed bupropion XL 150 mg daily. RTC in 2-4 weeks to evaluate response to treatment. 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 Less likely ankylosing spondyliti s vs gout vs other injury. Continue home exercises -- provided additional exercises with handout today. Recommende d liberal use of ice and heat as needed, as well as topical NSAIDs and/or oral NSAIDs to be taken with food. Continue tizanidine use as needed. RTC in 1 month; consider referral back to physical therapy.- 09/08/23: Patient attributes chronic low back pain to weight. Discussed weight loss strategies . Trial meloxicam 7.5 mg daily; RTC in 2 weeks to re-evaluat e response. Elevated blood-pressure reading without diagnosis of hypertension [id number] R03.0 - Will monitor at future visits Immunization due [id number] [id number] Z28.39 - Overdue for Tdap. Counseled on recommende d vaccine, but patient declined [id number] MD Bulmaro ROMERO (DEBT COUNSELOR) [address] [place] [address] 04/12/2024 08:56:25 04/26/2024 16:57:17 Mixed anxiety and depressive disorder 499854303 F41.8 - History of anxiety and depression . Previously on escitalopr am 10 mg daily.- Was prescribed bupropion in August 2023 but was taking inconsiste ntly. Would like to try medication again, especially since it may help her lose the weight she's gained since having worsening depression . Prescribed bupropion XL 150 mg daily. RTC in 2 weeks to evaluate response to treatment. - Referred to {{physical therapy pe lvic floor PT cardiol ogy pulmon ology neur ology psyc hiatry [facility] medicine [facility] surgery or tho counse ling*}} for further evaluation and treatment [id number] MD Bulmaro ROMERO (DEBT COUNSELOR) [address] [place] [address] 04/26/2024 15:38:26 04/29/2024 15:45:35 Hypothyroidism 05873964 E03.9 - Previously controlled on levothyrox ine 137 mcg daily. F/u TSH and treat as indicated by results. Mixed anxi ety and depressive disorder 477987137 F41.8 - History of anxiety and depression . Previously on escitalopr am 10 mg daily, now on bupropion XL 150 mg daily with inadequate response. Increase to 300 mg daily and RTC in 2 weeks for video visit to evaluate response to treatment. - Referred to {{physical therapy pe lvic floor PT cardiol ogy pulmon ology neur ology psyc hiatry [facility] surgery or tho counse ling*}} for further evaluation and treatment. Referral to be sent to different office due to wait time at initial office patient was referred to.- FMLA form completed during visit and faxed back. Copy given to patient for her records. [id number] MD Bulmaro ROMERO (DEBT COUNSELOR) [address] [place] [address] 05/11/2024 11:33:43 05/12/2024 10:24:27 Mixed anxiety and depressive disorder 230617094 F41.8 - History of anxiety and depression . Previously on escitalopr am 10 mg daily, now improving on bupropion XL 300 mg- Referred to {{physical therapy pe lvic floor PT cardiol ogy pulmon ology neur ology psyc hiatry [facility] medicine [facility] surgery or tho counse ling*}} for further evaluation and treatment. Patient to call new office to follow up on referral. Obesity 652318122 Z68.36 E66.812 - Will start Zepbound for weight management . Discussed side effects, R/B/A. Recommende d patient check Zepbound website and talk with pharmacist about how to self-admin ister medication in further detail. RTC in 4 weeks to evaluate tolerance to medication . [id number] MD Bulmaro ROMERO (DEBT COUNSELOR) [address] [place] [address] 06/29/2024 09:13:13 06/30/2024 10:29:44 Hypothyroidism 59357029 E03.9 - On levothyrox ine 150 mcg daily- F/u TSH and treat as indicated by results Health Concerns Section Related Observation LastModified by Organization Detai ls LastModified Time None Recorded Concern Status LastModified by Organization Details LastModified Time None Recorded Advance Directives Directive None Recorded Payers Encounter Date Sequence Insurance Name Policy Number Policy Hughes Covered Member ID Hughes Member ID Guarantor Name 09/08/2023 2 *SELF PAY* [place] 09/08/[address] [facility] [id number] Hui L Alejo [id number] Hui Alejo 04/12/[address] [facility] (O) [id number] Hui L Alejo [id number] Hui Alejo 04/26/[address] [facility] ([facility]) [id number] Hui L Alejo [id number] Hui Alejo 05/11/[address] [facility] ([facility]) [id number] Hui L Alejo [id number] Hui Alejo 06/29/[address] [facility] ([facility]) [id number] Hui L Alejo [id number] Hui Alejo Notes Date Note Type Note Provider Name and Address Organization Details Recorded Time 09/08/2023 text/html Annual wellnessConcerns today - Needs medications refilled. Has been over 6 months since she has had her medications.- Not sure if able to lose weight due to the Lexapro. Slept a lot on Lexapro. Previously on Wellbutrin and felt like that worked better for her. Has been gaining weight over past 5 years.- Gets right leg cramping in the mornings every day. Has chronic low back pain. Cardiovascular risk- HTN: FHx in mother- DM2: FHx in mother- HLD: FHx in mother- Personal history of CT, CVA? No- Family history of CT, CVA? CVA in mother in her 70s. Infection risk- Prior testing for HIV? None on file. Yes - tested negative during 30 years ago.- Prior testing for HepC? None on file. 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 Yes - but many years ago- Currently having unprotected sex? Not sexually active- Vaccines due? Tdap, flu, COVID Plans for - Not sexually active Cancer screenings- Breast cancer: FHx in maternal aunt, diagnosed in her 30s or 40s. Mom is well. No sisters. No breast changes.- Cervical cancer: Denies h/o abnormal Pap. 11/2021 -- NILM, neg hr-HPV.- Colon cancer: FHx in maternal grandfather, unknown age of diagnosis.- Lung cancer: Current smoker - 0.25 ppd on and off since age 18. LINA PATEL MD Attn: [address] [place], [address], [facility] 09/08/2023 12:19:56 04/12/2024 text/html Anxiety and depression- Has been feeling more depressed lately- Hasn't been able to get up and do tasks as usual- Concerned also about gaining weight due to this- Was prescribed bupropion at last visit but felt sleepy during the day time when she took it in the morning. Switched to taking at night but didn't take it consistently.- Denies SI/HI, self harm- Interested in talking with therapist and getting back on medicine- Hoping to use short-term disability at work for about 4 weeks to better manage her depression and also for her upcoming mammogram appointment Hypothyroidism- Was off of thyroid medicine for about a week due to issues with getting the medication from [facility]- Switched to [facility] and was able to pickle cutter meds LINA PATEL MD Attn: [address] [facility], [place], [address], 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 04/26/2024 17:20:00 05/11/2024 text/html Depression/anxie ty- Has noticed a bit of improvement on buproprion- FMLA approved until 05/24/24 but does not think she'll need it to be extended. Will need a release form completed. Weight management- Interested in starting Zepbound- No personal or FHx of MEN2B syndrome or medullary thyroid cancer Telehealth visit- Verbal consent for telehealth services was obtained by clinical staff.- The {{patient* parent guar zaida}} was seen through {{synchronous audio and video technology* audio only was used due to patient technology challenges audio only was used due to internet bandwidth issues audio only was used due to connectivity issues audio only was used due to inadequate patient equipment audio only was used due to technology failure audio only was used due to patient preference audio only was used due to: ____}}.- Visit was conducted over [employer].- Physician's primary practice site: [facility] - {{Site 16 ([place])* Site 14 ([place]) Site 20 ([place])}}- Location of patient: {{home* work other:}}- Time started: 11:24 AM- Time ended: 11:38 AM- Total length of visit: 13m15s LINA PATEL MD Attn: [address]ing[address] [facility], [place], [address], [facility] 05/11/2024 15:29:39 06/29/2024 text/html Hypothyroidism- Has been taking levothyroxine on an empty stomach for the past 4 weeks- Was hoping to get repeat labs done- Declined to discuss anything beyond her hypothyroidism Telehealth visit- Verbal consent for telehealth services was obtained by clinical staff.- The {{patient* parent guar zaida}} was seen through {{synchronous audio and video technology* audio only was used due to patient technology challenges audio only was used due to internet bandwidth issues audio only was used due to connectivity issues audio only was used due to inadequate patient equipment audio only was used due to technology failure audio only was used due to patient preference audio only was used due to: ____}}.- Visit was conducted over [employer].- Location of provider: [facility] Healthcare clinic - {{Site 16 ([place])* Site 14 ([place]) Site 20 ([place])}}- Location of patient: {{home* work other:}}- Time started: 8:48 AM- Time ended: 8:50 AM- Total length of visit: 2m12s LINA PATEL MD Attn: [address] [place], [address], [facility] 06/29/2024 09:53:11 OBGyn Episode Ob Episode Information Episode Created Date Number of Fetuses Patient Bloodtype Patient rh Status Prepregnancy Weight lbs Domestic Partner Domestic Partner Phone Father Name Store Clerk Cashier Status 12/27/19 22 1 CLOSED Fetus Data First Name Last Name Admitted to NICU Weight (g) Sex Living Outcome Pediatric Complications Fetus ID Race Codes Race Delivery Type 3345.24 1 M Full Term [id number] Vaginal Moses Calculation Initial Moses Date Initial Exam Date Initial Exam Provider Initial Ultrasound Date Last Menstrual Period Date Ultra Sound Weeks Gestation 0 Eighteen To Twenty Week Moses Update Ultra Sound Date Fundal Height At Umbil Quickening Date Ultra Sound Latest Weeks Gestation Final Moses Confirmed By Final Moses Confirmed Date Final Moses Date Ultra Sound Latest Days Gestation 0 0 Menstrual History Last Menstrual Date Menses Monthly On Bcp Conception Prior Menses Frequency Hcg Plus Date Menarche Onset Age Delivery Information Delivery Date Delivery Type Labor Anesthesia Weeks Gestation Incision Type Labor Labor Length Hrs Delivered By Post Complications Tubal Sterilization Discharge Date Comments 4 Discharge Information Feeding Method Contraceptive Method Maternal HG B and HCT Levels Ob Episode Information Episode Created Date Number of Fetuses Patient Bloodtype Patient rh Status Prepregnancy Weight lbs Domestic Partner Domestic Partner Phone Father Name Store Clerk Cashier Status 12/27/19 22 1 CLOSED Fetus Data First Name Last Name Admitted to NICU Weight (g) Sex Living Outcome Pediatric Complications Fetus ID Race Codes Race Delivery Type , Induced [id number] Moses Calculation Initial Moses Date Initial Exam Date Initial Exam Provider Initial Ultrasound Date Last Menstrual Period Date Ultra Sound Weeks Gestation 0 Eighteen To Twenty Week Moses Update Ultra Sound Date Fundal Height At Umbil Quickening Date Ultra Sound Latest Weeks Gestation Final Moses Confirmed By Final Moses Confirmed Date Final Moses Date Ultra Sound Latest Days Gestation 0 0 Menstrual History Last Menstrual Date Menses Monthly On Bcp Conception Prior Menses Frequency Hcg Plus Date Menarche Onset Age Delivery Information Delivery Date Delivery Type Labor Anesthesia Weeks Gestation Incision Type Labor Labor Length Hrs Delivered By Post Complications Tubal Sterilization Discharge Date Comments 4 Discharge Information Feeding Method Contraceptive Method Maternal HG B and HCT Levels Ob Episode Information Episode Created Date Number of Fetuses Patient Bloodtype Patient rh Status Prepregnancy Weight lbs Domestic Partner Domestic Partner Phone Father Name Store Clerk Cashier Status 12/27/19 22 1 CLOSED Fetus Data First Name Last Name Admitted to NICU Weight (g) Sex Living Outcome Pediatric Complications Fetus ID Race Codes Race Delivery Type , Induced [id number] Moses Calculation Initial Moses Date Initial Exam Date Initial Exam Provider Initial Ultrasound Date Last Menstrual Period Date Ultra Sound Weeks Gestation 0 Eighteen To Twenty Week Moses Update Ultra Sound Date Fundal Height At Umbil Quickening Date Ultra Sound Latest Weeks Gestation Final Moses Confirmed By Final Moses Confirmed Date Final Moses Date Ultra Sound Latest Days Gestation 0 0 Menstrual History Last Menstrual Date Menses Monthly On Bcp Conception Prior Menses Frequency Hcg Plus Date Menarche Onset Age Delivery Information Delivery Date Delivery Type Labor Anesthesia Weeks Gestation Incision Type Labor Labor Length Hrs Delivered By Post Complications Tubal Sterilization Discharge Date Comments 0 Discharge Information Feeding Method Contraceptive Method Maternal HG B and HCT Levels
--- NOTE | 2024-07-09 03:20 | PC.NURSE ---
pt will only pee when we give her water.
[2024-07-09 05:08] LABS: NT Pro B Type Natriuretic Pept < 20 pg/mL (19.9-100); Troponin I < 0.012 ng/mL (0.000-0.034)
== END 2024-07-09 05:55 | disposition home or self-care (01) ==
PROVIDERS: Emergency Provider Emergency Medicine; PCP Internal Medicine
DX: I10 Essential (primary) hypertension (principal); R94.31 Abnormal electrocardiogram [ECG] [EKG]
CPT/HCPCS: 36415; 71046; 80053; 83880; 84484; 85025; 93005; 99284